=== PATIENT | female | born 1965 | race Caucasian/White ===

== ENCOUNTER → 2020-03-03 09:17 | Outpatient (CLI) | payer MEDICARE ==
[2020-03-03 10:33] LABS: ALBUMIN 3.6 g/dL (3.4-5.0); ANION GAP 11.8 mmol/L (8-16); BILIRUBIN - TOTAL 0.75 mg/dL (0.2-1.3); CALCIUM 9.8 mg/dL (8.5-10.1); CARBON DIOXIDE 27.5 mmol/L (21.0-32.0); POTASSIUM - SERUM 4.3 mmol/L (3.5-5.1); PROTEIN - SERUM 6.8 g/dL (6.4-8.2)
[2020-03-03 10:48] LABS: HEMOGLOBIN 10.8 g/dL (12-16); MCHC 31.8 g/dL (31.0-37.0); MCV 81.9 fL (80.0-100.0); MEAN PLATELET VOLUME 10.8 fL (7.4-10.4); PLATELET COUNT 135 10x3/uL (130-400); RBC 4.15 10x6/uL (4.00-5.40); WBC 2.3 10x3/uL (4.8-10.8)
[2020-03-03 13:43] LABS: BASOPHILS 1 % (0-2); EOSINOPHILS 4 % (0-7); LYMPHOCYTES 28 % (15-50); MONOCYTES 11 % (2-11); NEUTROPHILS 53 % (40-80); PLATELET ESTIMATE NORMAL
== END | disposition home or self-care (01) ==
LOC: D.LAB 09:17
PROVIDERS: ATTEND Internal Medicine Gastroenterology
DX: Z94.4 Liver transplant status (principal)